=== PATIENT | male | born 1985 | race Caucasian/White ===

== ENCOUNTER 2017-06-13 14:33 | Emergency (ER) | payer BC, OTHER ==
[~2017-06-13 14:33] MED LIST: Iopamidol 370 76% 100 ML VIAL ONE
[2017-06-13] MEDS ORDERED: Ketorolac Tromethamine 30 MG/ML VIAL ONE (16:08)
[2017-06-13] MEDS ORDERED: Ondansetron HCl/PF 4 MG/2 ML Vial ONE (16:08)
[2017-06-13 16:14] LABS: #Basophils 0.1 thou/uL (0.0-0.2); #Eosinphils 0.1 thou/uL (0.0-0.7); #Lymphocytes 1.5 thou/uL (1.20-3.40); #Monocytes 0.6 thou/uL (0.11-0.59); #Neutrophils 6.2 thou/uL (1.40-6.50); %Basophils 0.8 % (0.0-1.0); %Eosinophils 1.7 % (0.0-10.0); %Lymphocytes 17.9 % (21.0-51.0); %Monocytes 7.4 % (0.0-10.0); %Neutrophils 72.3 % (42.0-75.0); Hemoglobin 16.4 g/dL (14.0-18.0); Mean Corpuscular HGB CONC 34.2 g/dL (32.0-36.0); Mean Corpuscular Hemoglobin 29.9 pg (27.0-31.0); Mean Corpuscular Volume 87.6 fl (80.0-94.0); Mean Platelet Volume 8.9 fL (7.4-10.4); Platelet Count 314 thou/uL (130-400); RBC Distribution Width 11.3 % (11.5-14.5); Red Blood Cell (RBC) Count 5.48 mill/uL (4.70-6.10); White Blood Cell (WBC) Count 8.6 thou/uL (4.8-10.8)
[2017-06-13 16:28] LABS: ALT (SGPT) 26 U/L (8-55); AST (SGOT) 17 U/L (5-34); Albumin 4.8 g/dL (3.5-5.0); Alkaline Phosphatase 61 U/L (40-150); Anion Gap 17 mmol/L (10-20); BUN (Urea Nitrogen) 17 mg/dL (8.9-20.6); Bilirubin, Total 0.3 mg/dL (0.2-1.2); Calc. Creatinine Clearance 0 mL/min (70-130); Calcium 9.8 mg/dL (7.8-10.44); Carbon Dioxide 26 mmol/L (22-29); Chloride 101 mmol/L (98-107); Estimated GFR-MDRD 71; Globulin 3.2 g/dL (2.4-3.5); Glucose 105 mg/dL (70-105); Lipase 27 U/L (8-78); Sodium 140 mmol/L (136-145)
[2017-06-13 16:34] LABS: Bilirubin Negative (Negative); Blood, Urine Negative (Negative); Clarity Hazy (Clear); Glucose, Urine (Dipstick) Negative (Negative); Leukocyte Negative (Negative); Nitrite Negative (Negative); Protein, Urine (Dipstick) Negative (Neg-Trace); Urobilinogen 0.2 mg/dL (0.2-1.0)
[2017-06-13 16:36] LABS: Bacteria/HPF 1+ HPF (None Seen); RBC/HPF 0-3 HPF (0-3); Squamous Epithelial 0-3 HPF (0-3); WBC/HPF None Seen HPF (0-3)
--- NOTE | 2017-06-13 18:39 | CT ---
CT ABDOMEN AND PELVIS WITH CONTRAST 06/13/17 Multiple axial tomograms obtained through the abdomen and pelvis with IV enhancement. Some oral contr ast was given as well. INDICATIONS: Right upper and right lower abdominal pain. Comparison made to prior CT from 2013. FINDINGS: The lung bases are clear. The liver, spleen and pancreas unremarkable. There are numerous isodense ga llstones in the gallbladder many of which have peripheral calcification. The gallbladder appears pack ed with gallstones. No evidence of pericholecystic edema. No biliary duct dilatation. Adrenal glands and kidneys are unremarkable. Urinary bladder unremarkable. There is dilatation of the proximal and mid small bowel loops. Mid small bowel loops measure up to 4 cm diameter. The distal ileal loops are decompressed. The findings are consistent with a relatively h igh grade mid small bowel obstruction. Adhesions would be suspected. There is no evidence of mass shayna ntified. Aorta is normal caliber. Images through the pelvis are unremarkable. IMPRESSION: 1. Dilated loops of proximal and mid small bowel with decompressed distal small bowel loops stephanie cating a mid small bowel obstruction. 2. Cholelithiasis is noted. POS: [facility]
[2017-06-13] MEDS ORDERED: Morphine 10 MG/ML VIAL ONE (19:15)
== END 2017-06-13 20:13 | disposition short-term general hospital (02) ==
LOC: MADERS 14:33
DX: K56.609 Unspecified intestinal obstruction, unspecified as to partial versus complete obstruction (principal); F17.220 Nicotine dependence, chewing tobacco, uncomplicated
CPT/HCPCS: 74177; 80053; 81001; 82150; 83690; 85025; 87086; 96374; 96375; J1885; J2270; J2405

== ENCOUNTER 2021-10-11 22:18 | Emergency (ER) | payer OTHER, BC | END 2021-10-11 23:30 | disposition home or self-care (01) | LOC: MADERS 22:18 | DX: S43.401A Unspecified sprain of right shoulder joint, initial encounter (principal); S63.501A Unspecified sprain of right wrist, initial encounter; F17.220 Nicotine dependence, chewing tobacco, uncomplicated; V89.0XXA Person injured in unspecified motor-vehicle accident, nontraffic, initial encounter ==